=== PATIENT | female | born 1990 | race Caucasian/White ===

== ENCOUNTER 2023-07-05 21:55 | Emergency (ER) | payer MEDICARE, SELFPAY ==
[2023-07-05 21:58] VITALS: BP 118/78
--- NOTE | 2023-07-05 22:35 | ED.GENMED ---
History of Present Illness
General
Chief Complaint: Anxiety
Source: patient
Exam Limitations: none
Time Seen by Provider: 07/05/23 22:00
Travel History
Have you had any contact with someone who has COVID-19?: No
Do you have any symptoms of coronavirus? Fever > 100 degrees, chills, cough, shortness of breath, sore throat, loss of taste or smell, muscle aches, or headache?: No
History of Present Illness
History of Present Illness:
This a pleasant 32-year-old female who presents after a panic attack. She states that she went out drinking today and has not been feeling well much of the day today. She states that she does have a history of anxiety and has had several panic
attacks in the past. Tonight she developed a panic attack and had some lightheadedness and leg tingling. She took Ativan 2 hours prior to arrival but did not have much relief. Upon arrival via EMS, she states that her symptoms are resolving.
Patient denies chest pain or current shortness of breath. She is a smoker. She works as a painter and decorator apprentice. She states that she drinks alcohol 3-4 times a week. She denies any illicit drug use.
Past History
Past History
ED Past Medical History: None
ED Past Surgical History: None
Social History
Tobacco: Smoker
Drug: None
Living: with family
Employment: Employed ([employer])
Review of Systems
Review of Systems
Allergies reviewed?: Yes
All Other Systems: ROS reviewed and negative except as documented in HPI and ROS
Constitutional: Reports no symptoms
EENT: Reports no symptoms
Respiratory: Reports no symptoms
Cardiac: Reports no symptoms
ABD/GI: Reports no symptoms
: Reports no symptoms
Musculoskeletal: Reports no symptoms
Skin: Reports no symptoms
Neurological: Reports no symptoms
Endocrine: Reports no symptoms
Hematologic/Lymphatic: Reports no symptoms
Psychiatric: Reports anxiety
Phy Exam
General Physical Exam
General Presentation: well appearing and no apparent distress
General Skin: warm and dry
General Habitus: normal
General Mental: alert
General Hydration: appears well hydrated
ENT Exam
ENT Exam: EOMI, pharynx normal, neck supple and normocephalic
Eye Exam
Eye Exam: PERRL, cornea clear and conjunctiva normal
Cardiovascular Exam
Cardiovascular Exam: regular rate/rhythm, no edema, no murmur and normal peripheral pulses
Pulmonary Exam
Pulmonary Exam: lungs clear, no respiratory distress, no rales, no crackles, no rhonchi, no stridor, no wheezing and no cough
Gastrointestinal Exam
Gastrointestinal Exam: normal bowel sounds, non tender, soft, no organomegaly, no pulsatile mass and non distended
Neurological Exam
Neurological Exam: alert, oriented x3, no motor deficits and speech normal
Musculoskeletal Exam
Musculoskeletal Exam: full ROM and no edema
Skin Exam
Skin Exam: normal color, warm/dry, no rash and no petechia
Psychiatric Exam
Psychiatric Exam: normal mood/affect and anxious
Course
Orders/Labs/Results
Orders:
Orders
07/05/23 22:12
ECG [Electrocardiogram (*1)] Urgent
Reason for Study: Palpitations
Cardiology Consult: Unknown
07/05/23 22:13
EKG- Treatment ONCE
07/05/23 23:16
Diazepam [Valium] 2 mg PO NOW STA
Vital Signs
Initial and Last Documented VS:
Initial Vital Signs
Temp Pulse Resp BP Pulse Ox
98.1 F 71 20 118/78 99
07/05/23 21:58 07/05/23 21:58 07/05/23 21:58 07/05/23 21:58 07/05/23 21:58
Last Documented Vital Signs
Temp Pulse Resp BP Pulse Ox
98.1 F 58 20 114/74 99
07/05/23 21:58 07/06/23 00:10 07/06/23 00:10 07/06/23 00:10 07/05/23 23:09
*Critical Care Note
Total Time (30-74mins, 75-104mins- exclusive of procedures): Not Applicable
Update Note
Update Note:
07/06/2023 0016 AM: Patient states that her symptoms have completely resolved. She wishes to be discharged home.
ED Attending Note
-
Portions of this chart may have been created with voice recognition software.� Occasional wrong word or��sound alike� substitutions may have occurred due to the inherent limitations of voice recognition software.
Discharge Plan
Departure
Patient Disposition: Home (Routine Discharge)
Date of Disposition: 07/06/23
Time of Disposition: 00:16
Patient with high blood pressure during this ER visit?: No
Condition: Good
Discharge Problem:
Anxiety, Panic attack
Instructions: Anxiety, Adult (DC), Panic Disorder (DC)
Prescriptions:
No Action
ibuprofen 600 MG tablet
600 mg PO Q4HPRN PRN (Reason: moderate pain/cramps) Qty: 0 0RF
lorazepam [Ativan] 0.5 mg tablet
0.5 mg PO HS PRN (Reason: anxiety) Qty: 7 0RF
Referrals:
[facility] [Outside]
[facility] [Outside]
[facility] [[facility] -
NONE,* [Family Provider] -
Activity Restrictions/Additional Instructions:
It was a pleasure meeting you and taking part in your care. We hope for your continued healing and wellness.
Please read discharge instructions in their entirety. However, they are for general education and may not describe your exact diagnosis at discharge. Information on your ER visit and medical conditions were discussed with you along with appropriate
follow up information...
If indicated, please take your medications as instructed and indicated on discharge paperwork.
Please schedule a follow up appointment as directed. Call to schedule an appointment
Please return to the emergency department with ANY change in, persisting, or worsening of symptoms. If any of your symptoms do not improve, or persist, or become more severe within 6-12 hours, please return to the emergency department for further
care.
Please return to the emergency department if you develop a headache, neck pain/stiffness, fever greater than 100.4F, chest pain, shortness of breath, persistent nausea, vomiting, slurred speech, difficulty walking, numbness/tingling, weakness, signs
of infection or any other symptoms that are worrisome to you.
If you have any questions or concerns please do not hesitate to call the Hospital at or E-mail me directly at [email or web address]
Interventions
Interventions:
*Risk Screen - Suicide Last Done: 07/05/23 21:58
*General Assessment Last Done: 07/05/23 21:58
*Neglect/Abuse Screening Last Done: 07/05/23 21:58
ED- Fall Risk Assessment Last Done: 07/05/23 21:58
*ED COVID-19 Vaccine History Last Done: 07/05/23 21:58
ED-Psychological Assessment Last Done: 07/05/23 22:09
[2023-07-05 23:09] VITALS: BP 117/69
[2023-07-05] MEDS: VALIUM 2 MG PO (23:19)
[2023-07-06 00:10] VITALS: BP 114/74
== END 2023-07-06 00:28 | disposition home or self-care (01) ==
LOC: EMR 21:55
PROVIDERS: EMERGENCY PHYSICIAN Student in an Organized Health Care Education/Training Program
DX: F41.9 Anxiety disorder, unspecified (principal); F41.0 Panic disorder [episodic paroxysmal anxiety]; F17.200 Nicotine dependence, unspecified, uncomplicated
CPT/HCPCS: 99283; 93005

== ENCOUNTER 2023-09-02 22:03 | Emergency (ER) | payer MEDICARE, SELFPAY ==
[2023-09-02 22:03] VITALS: BMI 19.1
[2023-09-02 22:08] VITALS: BP 136/87
[2023-09-02 22:28] LABS: % Basophils 0.4 % (0-2); % Eosinophils 1.7 % (0-6); % Immature Granulocytes 0.1 % (0-0.5); % Monocytes 8.3 % (1.7-9.3); % Neutrophils 54.5 % (42.2-75.2); Absolute Eosinophils 0.2 10^3/uL (0-0.7); Absolute Lymphocytes 3.4 10^3/uL (1.2-3.4); Absolute Monocytes 0.8 10^3/uL (0.1-0.6); Absolute Neutrophils 5.2 10^3/uL (1.4-6.5); Hematocrit 37.3 % (37.0-47.0); Hemoglobin 13.3 g/dL (12.0-16.0); Mean Corp Hgb Conc. 35.7 g/dL (33.0-37.0); Mean Corpuscular Hgb 32.9 pg (27.0-31.0); Mean Corpuscular Volume 92.3 fL (81.0-99.0); Mean Platelet Volume 9.3 fL (7.4-10.4); Nucleated Red Blood Cells % 0 %; Platelet Count 232 10^3/uL (130-400); Red Blood Cell Count 4.04 10^6/uL (4.20-5.40); Red Cell Dist. Width 11.9 % (11.5-14.5); White Blood Cell Count 9.6 10^3/uL (4.8-10.8)
[2023-09-02 22:37] LABS: HCG, Serum Qualitative Screen Negative
[2023-09-02 22:42] LABS: ALT (SGPT) 16 U/L (0-35); AST (SGOT) 29 U/L (14-36); Albumin 4.7 g/dl (3.5-5.0); Alkaline Phosphatase 66 U/L (38-126); Blood Urea Nitrogen 15 mg/dl (7-17); Calcium 10.1 mg/dl (8.4-10.2); Carbon Dioxide 24 mmol/L (22-30); Chloride 105 mmol/L (98-107); Glucose 110 mg/dl (70-99); Sodium 134 mmol/L (135-145); Total Bilirubin 0.7 mg/dl (0.2-1.3); Total Protein 7.4 g/dl (6.3-8.2); eGFR > 60.00
--- NOTE | 2023-09-02 23:06 | ED.GENMED ---
History of Present Illness
General
Chief Complaint: Breathing Problem
Source: patient
Exam Limitations: none
Time Seen by Provider: 09/02/23 22:57
Travel History
Have you had any contact with someone who has COVID-19?: No
Do you have any symptoms of coronavirus? Fever > 100 degrees, chills, cough, shortness of breath, sore throat, loss of taste or smell, muscle aches, or headache?: No
History of Present Illness
History of Present Illness:
This is a 33 year old female that comes in with multiple complaints. States that since Thursday she has been SOB and has tingling in both her arms and legs. States that also 2 weeks ago she was sitting in her Garage playing with her cat and her
Boyfriend tripped over her and landed on the right sided of her head. States that she has discomfort in the temporal area. Sates that she has left sided chest discomfort, SOB, nausea and occasionally is dizzy. Denies any fever, chills, abd pain,
vomiting, diarrhea, headache, urinary burning.
Past History
Past History
ED Past Medical History: Psychiatric (Anxiety, Depression. ) and Other (PE, Spontaneous Pneumothorax, )
ED Past Surgical History: (X2) and Gynecological ([place])
Social History
Tobacco: Smoker
Alcohol: Occasional
Drug: None
Personal: Single
Living: with family
Employment: Employed ([employer])
Review of Systems
Review of Systems
All Other Systems: ROS reviewed and negative except as documented in HPI and ROS
Constitutional: Reports no symptoms; Denies fever or chills
EENT: Reports no symptoms
Respiratory: Reports trouble breathing; Denies cough
Cardiac: Reports chest pain
ABD/GI: Reports nausea; Denies abdominal pain, vomiting or diarrhea
: Reports no symptoms; Denies dysuria, frequency or urgency
Musculoskeletal: Reports no symptoms
Skin: Reports no symptoms
Neurological: Reports dizzy and headache (right sided head pain)
Psychiatric: Reports no symptoms
Phy Exam
General Physical Exam
General Presentation: well appearing and no apparent distress
General age: appears stated age
General Skin: warm and dry
General Habitus: normal
General Mental: alert
General Hydration: appears well hydrated
ENT Exam
ENT Exam: TM's normal, pharynx normal and neck supple
Eye Exam
Eye Exam: EOMI
Cardiovascular Exam
Cardiovascular Exam: regular rate/rhythm, no edema, no murmur and normal peripheral pulses
Pulmonary Exam
Pulmonary Exam: lungs clear, no respiratory distress, no rales, chest non tender, no crackles, no rhonchi, no wheezing and no cough
Gastrointestinal Exam
Gastrointestinal Exam: normal bowel sounds, non tender, soft, no organomegaly, no pulsatile mass and non distended
Musculoskeletal Exam
Musculoskeletal Exam: full ROM and no edema
Skin Exam
Skin Exam: normal color, warm/dry, no rash and no petechia
Psychiatric Exam
Psychiatric Exam: normal mood/affect
Course
Orders/Labs/Results
Orders:
Orders
09/02/23 22:13
EKG [Electrocardiogram (*1)] Urgent
Reason for Study: Shortness of Breath
EKG- Treatment ONCE
Test Result ONCE
09/02/23 22:18
CBC/With Diff [Complete Blood Count/With Diff] Urgent
CMP [Comprehensive Metabolic Panel] Urgent
HCG, Serum Qualitative Screen Urgent
09/02/23 23:06
CT Head W/o Iv Contrast Urgent
Comment:
Reason For Exam: right sided head pain.
CR Chest - 2 Views Urgent
Comment:
Reason For Exam: SOB, chest pain
09/02/23 23:14
D-Dimer Urgent
Troponin I Urgent
Abnormal Lab Results
09/02/23
22:18
RBC 4.04 L 10^6/uL
(4.20-5.40)
MCH 32.9 H pg
(27.0-31.0)
Absolute Monos (auto) 0.8 H 10^3/uL
(0.1-0.6)
Sodium 134 L mmol/L
(135-145)
Glucose 110 H mg/dl
(70-99)
09/02/23 22:18
09/02/23 22:18
Glucose nonfasting. HCG negative, D-dimer 0.28 negative,
Vital Signs
Initial and Last Documented VS:
Initial Vital Signs
Temp Pulse Resp BP Pulse Ox
97.9 F 92 18 136/87 100
09/02/23 22:08 09/02/23 22:08 09/02/23 22:08 09/02/23 22:08 09/02/23 22:08
Last Documented Vital Signs
Temp Pulse Resp BP Pulse Ox
97.9 F 92 18 112/76 100
09/02/23 22:08 09/02/23 22:08 09/02/23 22:08 09/02/23 23:08 09/02/23 23:15
MDM/Problems Addressed
Differential Diagnosis Includes:
Anxiety, PE,
MDM/Problems Addressed:
This is a 33 year old female that comes in with multiple complaints. States that since Thursday she has been SOB, has tingling in her arms and legs with chest pain. States that her boyfriend tripped over her and landed on her head 2 weeks ago and she
has continued with right temporal pain.
Will check labs, Chest x ray and CT head. Explained to patent that this could all be related to her anxiety.
back into see patient. Explained that her blood work is normal along with her chest X-ray and CT of the head. D-dimer is negative. Explained that this may all be anxiety driven. Patient to follow up with the family doctor. Return with any concerns.
Chronic conditions affecting care: Psychiatric illness
Acute Exacerbation and/or Progression of Chronic Illness: Psychiatric illness
*Radiology
Radiology exam reviewed: preliminary read by ED provider (Chest- negative for active disease or Pneumothorax ) and radiology read reviewed (CT head- Night hawk- No acute intracranial findings. )
*Pulse Oximetry
Patient hypoxic: no
*EKG
Interpreted by ED Provider?: Yes
Heart Rate: 72
Rate: normal
Rhythm: sinus arrhythmia
[place]: normal axis
Interval: normal interval
QRS Pattern: normal QRS
Ischemia: no ischemia
*Critical Care Note
Total Time (30-74mins, 75-104mins- exclusive of procedures): Not Applicable
ED Attending Note
-
Portions of this chart may have been created with voice recognition software.� Occasional wrong word or��sound alike� substitutions may have occurred due to the inherent limitations of voice recognition software.
Discharge Plan
Departure
Disposition: Home (Routine Discharge)
Date of Disposition: 09/03/23
Time of Disposition: 00:24
Patient with high blood pressure during this ER visit?: No
Condition: Good
Covid-19: Not Applicable
Discharge Problem:
Anxiety
Instructions: Anxiety, Adult (DC)
Prescriptions:
No Action
ibuprofen 600 MG tablet
600 mg PO Q4HPRN PRN (Reason: moderate pain/cramps) Qty: 0 0RF
lorazepam [Ativan] 0.5 mg tablet
0.5 mg PO HS PRN (Reason: anxiety) Qty: 7 0RF
Additional Instructions:
As discussed, your blood work is normal along with your Chest x-ray and CT of the head. This may all be anxiety driven. Please increase your water intake to 8-8oz glasses daily. Follow up with the family doctor for recheck. IF YOU HAVE ANY OTHER
CONCERNS PLEASE RETURN TO THE EMERGENCY ROOM.
Interventions
Interventions:
*Risk Screen - Suicide Last Done: 09/02/23 22:08
*General Assessment Last Done: 09/02/23 22:08
*Neglect/Abuse Screening Last Done: 09/02/23 22:08
ED- Fall Risk Assessment Last Done: 09/02/23 23:03
*ED COVID-19 Vaccine History Last Done: 09/02/23 23:05
ED- Cardiac Assessment Last Done: 09/02/23 23:04
ED- Pulmonary Assessment Last Done: 09/02/23 23:04
Discharge Date and Time
Print Language: HUNGARIAN
[2023-09-02 23:08] VITALS: BP 112/76
[2023-09-02 23:37] LABS: D-Dimer 0.28 ug/mlFEU (0.00-0.50)
[2023-09-02 23:57] LABS: Troponin I < 0.012 ng/ml
[2023-09-03] VITALS: BP 115/76
== END 2023-09-03 00:34 | disposition home or self-care (01) ==
LOC: EMR 22:03
PROVIDERS: Clinical Nurse Specialist Family Health; Emergency Medicine; EMERGENCY PHYSICIAN Emergency Medicine
DX: F41.9 Anxiety disorder, unspecified (principal); F17.200 Nicotine dependence, unspecified, uncomplicated
CPT/HCPCS: 99285; 70450; 71046; 80053; 84484; 84703; 85025; 85379; 93005